=== PATIENT | female | born 1950 | race Two or more races ===

== ENCOUNTER 2019-03-01 09:25 | Outpatient (CLI) | payer OTHER | END 2019-03-01 09:36 | disposition home or self-care (01) | LOC: SONOGRAMA 09:25 → MAMO-SONO 10:15 | DX: M25.511 Pain in right shoulder (principal); M75.111 Incomplete rotator cuff tear or rupture of right shoulder, not specified as traumatic ==

== ENCOUNTER → 2020-01-12 | Outpatient (CLI) | payer OTHER | END | disposition home or self-care (01) | LOC: MRI 07:15 | PROVIDERS: ATTEND Physical Medicine & Rehabilitation Hospice and Palliative Medicine | DX: S83.241A Other tear of medial meniscus, current injury, right knee, initial encounter (principal) | CPT/HCPCS: 73721 ==